=== PATIENT | female | born 2000 | race Caucasian/White ===

== ENCOUNTER 2023-04-18 09:58 | Outpatient (CLI) | payer OTHER, SELFPAY ==
[2023-04-18 14:46] LABS: Chlamydia DNA Amplified* NOT DETECTED (No Detected); GC DNA Amplified* NOT DETECTED (No Detected)
== END 2023-04-18 09:59 | disposition home or self-care (01) ==
PROVIDERS: Visit Provider Registered Nurse
DX: Z11.3 Encounter for screening for infections with a predominantly sexual mode of transmission (principal)
CPT/HCPCS: 87491; 87591

== ENCOUNTER 2024-01-11 08:45 | Outpatient (CLI) | payer OTHER, SELFPAY | END 2024-01-11 08:46 | disposition home or self-care (01) | LOC: NFLDREF 01-15 20:09 | PROVIDERS: Visit Provider Nurse Practitioner Family | DX: R82.90 Unspecified abnormal findings in urine (principal); B37.31 Acute candidiasis of vulva and vagina | CPT/HCPCS: 87086; 87186 ==